=== PATIENT | male | born 1945 | race Caucasian/White ===

== ENCOUNTER 2016-08-23 05:15 | Emergency (ER) | payer MEDICARE, OTHER ==
[2016-08-23] MEDS ORDERED: ASPIRIN 81 MG TABLET, CHEWABLE PO ONE (05:17)
--- NOTE | 2016-08-23 05:24 | ER Document Report ---
ED Cardiac - General Chief Complaint: Weakness Stated Complaint: LOW HEART RATE Time seen by provider: 05:10 Notes: Patient is a 70 -year-old male who comes in because he woke up feeling weak. Patient has been having recent workup for bradycardia. Had a stress test yesterday that showed no abnormalities and was instructed to follow-up with an EP physician. Patient states that he was weak, nauseated, and felt lightheaded. called EMS. Patient was given atropine and states that he feels better at this time. Patient was only given 0.5 of atropine. Of note, patient did stress test yesterday was able to get his heart rate up to 120 on the treadmill. No medications were given. Patient is only taking a statin and allopurinol at this time. No chest pain. No difficulty breathing. Patient has been seen Dr. Baer at [facility] Quality of pain: None Cardiac risk factors: Dyslipidemia Associated symptoms: Weakness Exacerbated by: Standing Similar symptoms previously: Yes Recently seen / treated by doctor: Yes Past Medical History - Social History Smoking Status: Unknown if Ever Smoked Cigarette use (# per day): No Chew tobacco use (# tins/day): No Frequency of alcohol use: None Lives with: Spouse/Significant other Family History: Reviewed & Not Pertinent Review of Systems - Review of Systems -: Yes All other systems reviewed and negative Physical Exam - Vital signs Vitals: Pulse Ox 99 08/23/16 05:17 Interpretation: Normal - General General appearance: Appears well, Alert In distress: None - HEENT Head: Normocephalic, Atraumatic Eyes: Normal Pupils: PERRL - Respiratory Respiratory status: No respiratory distress Chest status: Nontender Breath sounds: Normal Chest palpation: Normal - Cardiovascular Rhythm: Regular, Bradycardia Heart sounds: Normal auscultation Murmur: No - Abdominal Inspection: Normal Distension: No distension Bowel sounds: Normal Tenderness: Nontender Organomegaly: No organomegaly - Back Back: Normal, Nontender - Extremities General upper extremity: Normal inspection, Nontender, Normal color, Normal ROM , Normal temperature General lower extremity: Normal inspection, Nontender, Normal color, Normal ROM , Normal temperature, Normal weight bearing. No: Nick's sign - Neurological Neuro grossly intact: Yes Cognition: Normal Orientation: AAOx4 [place] Coma Scale Eye Opening: Spontaneous [place] Coma Scale Verbal: Oriented [place] Coma Scale Motor: Obeys Commands [place] Coma Scale Total: 15 Speech: Normal Motor strength normal: LUE, RUE, LLE, RLE Sensory: Normal - Psychological Associated symptoms: Normal affect, Normal mood - Skin Skin Temperature: Warm Skin Moisture: Dry Skin Color: Normal Course - Re-evaluation Re-evalutation: 08/23/16 06:27 Patient was discussed with the transfer center at [facility]. He has been accepted by Dr. Allison for transfer. Patient has a bed assignment. Patient has external pacemaker on but is not being paced at this time. Heart rate is currently in the 30s. Blood pressure within normal limits. Patient has no complaints at this time. Stable for transfer via ALS. - Vital Signs Vital signs: Temp Pulse Resp BP Pulse Ox 99 08/23/16 05:17 - Laboratory Result Diagrams: 08/23/16 05:25 08/23/16 05:25 Laboratory results interpreted by me: 08/23/16 05:25 MCV 98 H Eosinophils % 8.8 H Absolute Eosinophils 0.7 H - EKG Interpretation by [place] EKG shows normal: Sinus rhythm Rate: Bradycardia - Consults [facility] Transfer [facility] Time consulted: 05:20 - will call hospitalist regarding ICU transfer for pacemaker Critical Care Note - Critical Care Note Total time excluding time spent on procedures (mins): 60 - evaluation and management of bradycardia with multiple re-evaluations, consultation with specialist, coordination of transfer, counseling of patient and family Discharge - Discharge Clinical Impression: Symptomatic bradycardia Condition: Stable Disposition: [facility]
[2016-08-23 05:39] LABS: ABSOLUTE BASOPHILS # (AUTO) 0.2 10^3/uL (0.0-0.2); ABSOLUTE EOSINOPHILS # (AUTO) 0.7 10^3/uL (0.0-0.6); ABSOLUTE MONOCYTES (AUTO) 0.7 10^3/uL (0.1-1.4); ABSOLUTE NEUT (AUTO) 3.7 10^3/uL (1.7-8.2); EOSINOPHILS % (AUTO) 8.8 % (0-6); HEMATOCRIT 46.1 % (37.9-51.0); HEMOGLOBIN 15.6 g/dL (13.5-17.0); HGB HCT DIFFERENCE 0.7; MEAN CORPUSCULAR HEMOGLOBIN 33.1 pg (27.0-33.4); MEAN CORPUSCULAR HGB CONC 33.7 g/dL (32.0-36.0); MEAN CORPUSCULAR VOLUME 98 fl (80-97); MONOCYTES % (AUTO) 8.6 % (3-13); RED CELL DISTRIBUTION WIDTH 13.2 % (11.5-14.0); SEGMENTED NEUTROPHILS % (AUTO) 44.6 % (42-78); WHITE BLOOD COUNT 8.4 10^3/uL (4.0-10.5)
[2016-08-23 07:07] LABS: ALANINE AMINOTRANSFERASE 70 U/L (21-72); ALKALINE PHOSPHATASE 58 U/L (38-126); ANION GAP 8 (5-19); ASPARTATE AMINO TRANSFERASE 33 U/L (17-59); BILIRUBIN,DIRECT 0.1 mg/dL (0.0-0.4); BILIRUBIN,TOTAL 0.9 mg/dL (0.2-1.3); BLOOD UREA NITROGEN 18 mg/dL (7-20); CALCIUM 9.4 mg/dL (8.4-10.2); CARBON DIOXIDE 28 mmol/L (22-30); CHLORIDE 106 mmol/L (98-107); CREATINE KINASE 63 U/L (55-170); CREATININE RESULT 0.89 mg/dL (0.52-1.25); GLUCOSE 114 mg/dL (75-110); TOTAL PROTEIN 5.8 g/dL (6.3-8.2)
[2016-08-23 07:12] LABS: POTASSIUM 4.6 mmol/L (3.6-5.0)
[2016-08-23 07:16] LABS: CREATINE KINASE MB 2.54 ng/mL (<4.55)
[2016-08-23 07:25] LABS: TROPONIN I 0.055 ng/mL
--- NOTE | 2016-08-23 08:28 | EKG REPORT ---
SEVERITY:- ABNORMAL ECG - ATRIAL FIBRILLATION VENTRICULAR PREMATURE COMPLEX INTERPOLATED VENTRICULAR PREMATURE COMPLEX BORDERLINE LEFT AXIS DEVIATION BORDERLINE T ABNORMALITIES, INFERIOR LEADS : Confirmed by: Bianca Finley 23-Aug-2016 08:27:11
[2016-08-23 08:34] VITALS: BP 138/54
[2016-08-23 08:46] LABS: ALANINE AMINOTRANSFERASE 68 U/L (21-72); ALBUMIN 3.9 g/dL (3.5-5.0); ALKALINE PHOSPHATASE 59 U/L (38-126); ANION GAP 10 (5-19); ASPARTATE AMINO TRANSFERASE 30 U/L (17-59); BILIRUBIN,DIRECT 0.1 mg/dL (0.0-0.4); BLOOD UREA NITROGEN 17 mg/dL (7-20); CARBON DIOXIDE 26 mmol/L (22-30); CHLORIDE 106 mmol/L (98-107); CREATININE RESULT 0.86 mg/dL (0.52-1.25); GLUCOSE 111 mg/dL (75-110); POTASSIUM 4.6 mmol/L (3.6-5.0); SODIUM 141.9 mmol/L (137-145); TOTAL PROTEIN 5.8 g/dL (6.3-8.2)
== END 2016-08-23 08:58 | disposition short-term general hospital (02) ==
LOC: ER 05:15
DX: R00.1 Bradycardia, unspecified (principal); R53.1 Weakness; R11.0 Nausea; R42 Dizziness and giddiness
CPT/HCPCS: 36415; 71010; 80053; 82550; 82553; 84484; 85025; 93005; 93010; 99291